=== PATIENT | female | born 1990 | race American Indian/Alaskan Native ===

== ENCOUNTER 2017-02-07 15:16 | Emergency (ER) | payer MEDICAID ==
[2017-02-07 16:14] LABS: Anion Gap 19 mmol/L; BUN/Creatinine Ratio 13; Blood Urea Nitrogen 8 mg/dL (7-17); Calcium 9.3 mg/dL (8.4-10.2); Carbon Dioxide 25 mmol/L (22-30); Glucose 113 mg/dL (65-100); Potassium 4.2 mmol/L (3.6-5.0); Sodium 138 mmol/L (137-145)
[2017-02-07 16:20] LABS: Basophils % (Auto) 0.3 % (0.0-1.8); Eosinophils % (Auto) 0.1 % (0.0-4.3); Hematocrit 42.4 % (30.3-42.9); Mean Corpuscular HGB Conc 33 % (30-34); Mean Corpuscular Hemoglobin 29 pg (28-32); Mean Corpuscular Volume 87 fl (79-97); Platelet Count 311 K/mm3 (140-440); Red Cell Distribution Width 13.9 % (13.2-15.2); White Blood Count 12.6 K/mm3 (4.5-11.0)
[2017-02-07 23:00] VITALS: BP 167/107
--- NOTE | 2017-02-08 02:06 | Emergency Department Report ---
ED Dizziness HPI - General Chief Complaint: Dizziness Stated Complaint: DIZZINESS/VOMITING Time Seen by Provider: 02/08/17 01:52 Source: patient Mode of arrival: Ambulatory Limitations: No Limitations - History of Present Illness Initial Comments: Patient is a 26-year-old female that presents to ER with dizziness and nausea vomiting 2 days. She states nausea vomiting started first. She states she feels her skin is pale and lips are dry and chapped. Patient denies chest pain or shortness of breath. She denies abdominal pain and fever and chills. LMP 01/31/17. Complaint: dizziness, lightheadedness -: Sudden Timing: sudden onset Description: lightheadedness History of Same: No History of Trauma: No Severity: severe Improves With: remaining still, rest Worsens With: movement, position, exertion, other (solid foods. ) Associated Symptoms: denies other symptoms - Related Data Previous Rx's Medication Instructions Recorded Last Taken Type Ferrous Sulfate [Feosol 325 MG tab] 325 mg PO BID #60 tablet 02/22/15 Unknown Rx HYDROcodone/APAP 5-325 [Campbell 1 each PO Q6H PRN #30 tablet 02/22/15 Unknown Rx 5-325 mg TAB] Ibuprofen [Motrin 600 MG tab] 600 mg PO Q6HR #30 tablet 02/22/15 Unknown Rx Vit-Fe Fumar-FA [ 1 each PO QDAY #30 tablet 02/22/15 Unknown Rx Vitamin] Ciprofloxacin HCl [Cipro] 500 mg PO Q12HR 10 Days #20 tablet 02/08/17 Unknown Rx Ondansetron [Zofran Odt] 4 mg PO Q6HR PRN #20 tab.rapdis 02/08/17 Unknown Rx Allergies Allergy/AdvReac Type Severity Reaction Status Date / Time No Known Allergies Allergy Unverified 02/21/15 20:27 ED Review of Systems ROS: Stated complaint: DIZZINESS/VOMITING Other details as noted in HPI Comment: All other systems reviewed and negative Respiratory: no symptoms reported Endocrine: no symptoms reported Gastrointestinal: nausea, vomiting ED Past Medical Hx - Past Medical History Previous Medical History?: Yes Hx Hypertension: No Hx Congestive Heart Failure: No Hx Diabetes: No Hx Deep Vein Thrombosis: No Hx Renal Disease: No Hx Sickle Cell Disease: No Hx Seizures: No Hx Asthma: No Hx COPD: No Hx HIV: No Additional medical history: Vaginal dleivery x 3 - Surgical History Past Surgical History?: No - Family History Family history: hypertension - Social History Smoking Status: Never Smoker Substance Use Type: Alcohol - Medications Home Medications: Home Medications Medication Instructions Recorded Confirmed Last Taken Type Ferrous Sulfate [Feosol 325 MG tab] 325 mg PO BID #60 tablet 02/22/15 Unknown Rx HYDROcodone/APAP 5-325 [Campbell 1 each PO Q6H PRN #30 tablet 02/22/15 Unknown Rx 5-325 mg TAB] Ibuprofen [Motrin 600 MG tab] 600 mg PO Q6HR #30 tablet 02/22/15 Unknown Rx Vit-Fe Fumar-FA [ 1 each PO QDAY #30 tablet 02/22/15 Unknown Rx Vitamin] Ciprofloxacin HCl [Cipro] 500 mg PO Q12HR 10 Days #20 tablet 02/08/17 Unknown Rx Ondansetron [Zofran Odt] 4 mg PO Q6HR PRN #20 tab.rapdis 02/08/17 Unknown Rx ED Physical Exam - General Limitations: No Limitations General appearance: alert, in no apparent distress - Head Head exam: Present: atraumatic, normocephalic - Eye Eye exam: Present: normal appearance - ENT ENT exam: Present: mucous membranes moist - Neck Neck exam: Present: normal inspection - Respiratory Respiratory exam: Present: normal lung sounds bilaterally. Absent: respiratory distress - Cardiovascular Cardiovascular Exam: Present: regular rate, normal rhythm. Absent: systolic murmur, diastolic murmur, rubs, gallop - GI/Abdominal GI/Abdominal exam: Present: soft, normal bowel sounds - Extremities Exam Extremities exam: Present: normal inspection - Back Exam Back exam: Present: normal inspection - Neurological Exam Neurological exam: Present: alert, oriented X3 - Psychiatric Psychiatric exam: Present: normal affect, normal mood - Skin Skin exam: Present: warm, dry, intact, normal color. Absent: rash ED Course Vital Signs 02/07/17 02/07/17 15:21 22:59 Temperature 97.8 F 98 F Pulse Rate 71 89 Respiratory 18 18 Rate Blood Pressure 154/97 167/107 O2 Sat by Pulse 100 100 Oximetry ED Medical Decision Making - Lab Data Result diagrams: 02/07/17 15:37 02/07/17 15:37 - EKG Data -: EKG Interpreted by Sd EKG shows normal: sinus rhythm Rate: normal - EKG Data When compared to previous EKG there are: previous EKG unavailable Interpretation: no acute changes, normal EKG Critical care attestation.: If time is entered above; I have spent that time in minutes in the direct care of this critically ill patient, excluding procedure time. ED Disposition Clinical Impression: Nausea & vomiting, Dizziness, Gastroenteritis, UTI (urinary tract infection) Disposition: - TO HOME OR SELFCARE Is pt being admited?: No Does the pt Need Aspirin: No Condition: Stable Instructions: Urinary Tract Infection in Women (ED), Gastroenteritis (ED), Acute Nausea and Vomiting (ED) Additional Instructions: Patient follow up with PCP in 3-5 days. Patient to return to ER if condition worsens. Patient to increase water. Patient to take ibuprofen Tylenol when necessary for pain. Brat diet Prescriptions: Ciprofloxacin HCl [Cipro] 500 mg PO Q12HR 10 Days #20 tablet Ondansetron [Zofran Odt] 4 mg PO Q6HR PRN #20 tab.rapdis PRN Reason: Nausea And Vomiting Referrals: PRIMARY CARE, [Primary Care Provider] - 3-5 Days Time of Disposition: 03:31
[2017-02-08 02:42] LABS: Urine Drugs of Abuse Note Disclamer
[2017-02-08 02:57] LABS: Bilirubin,Urine NEG (Negative); Blood,Urine MOD (Negative); Ketones,Urine 20 mg/dL (Negative); Leukocyte Esterase,Urine MOD (Negative); Mucus,Urine 3+ /HPF; Nitrite,Urine NEG (Negative); Urobilinogen,Urine < 2.0 mg/dL (<2.0)
[2017-02-08] MEDS ORDERED: ZOFRAN IM ONE (03:32)
[2017-02-08] MEDS ORDERED: ROCEPHIN IM ONE (03:32)
[2017-02-08] MEDS ORDERED: XYLOCAINE 1% MPF 5 mL INFILTRATI ONE (03:32)
== END 2017-02-08 05:25 | disposition home or self-care (01) ==
LOC: ED 15:16
DX: K52.89 Other specified noninfective gastroenteritis and colitis (principal); N39.0 Urinary tract infection, site not specified; R11.2 Nausea with vomiting, unspecified; R42 Dizziness and giddiness
CPT/HCPCS: 36415; 80048; 80307; 81001; 81025; 85025; 93005; 93010; 99283

== ENCOUNTER 2018-07-28 14:05 | Outpatient (CLI) | payer MEDICAID ==
[2018-07-28 17:15] LABS: Hemoglobin 10.6 gm/dl (10.1-14.3); Mean Corpuscular HGB Conc 34 % (30-34); Mean Corpuscular Volume 88 fl (79-97); Platelet Count 131 K/mm3 (140-440); Red Blood Count 3.53 M/mm3 (3.65-5.03)
[2018-07-28 17:39] LABS: Alanine Aminotransferase 8 units/L (7-56); Uric Acid 4.2 mg/dL (3.5-7.6)
[2018-07-28 17:56] VITALS: BP 136/89
--- NOTE | 2018-07-28 18:00 | Event Note ---
Date: 07/28/18 (labs wnl) BP 130/70 No c/o LIRIANO, blurred vision, chest pain. Will give pt 24hr urine container. She is instructed to RTO Triage Wednesday and turn it in and have repeat PIH labs drawn. Instructed to call with any concerns. Pt has appt in OB office Wednesday08-05-18
== END 2018-07-28 18:27 | disposition home or self-care (01) ==
LOC: TRG 14:05
PROVIDERS: ATTEND Obstetrics & Gynecology
DX: O47.03 False labor before 37 completed weeks of gestation, third trimester (principal); Z3A.35 35 weeks gestation of pregnancy
CPT/HCPCS: 36415; 82565; 83615; 84450; 84460; 84550; 85027; 86592; 87806

== ENCOUNTER 2018-07-30 14:19 | Outpatient (CLI) | payer MEDICAID ==
[2018-07-30 16:04] VITALS: BP 130/73
== END 2018-07-30 16:30 | disposition home or self-care (01) ==
LOC: TRG 14:19
PROVIDERS: ATTEND Obstetrics & Gynecology
DX: O47.03 False labor before 37 completed weeks of gestation, third trimester (principal); Z3A.36 36 weeks gestation of pregnancy
CPT/HCPCS: 59025; 84156

== ENCOUNTER 2018-08-04 16:07 | Inpatient (IN) | payer MEDICAID ==
[2018-08-04] MEDS ORDERED: LACTATED RINGERS 500 ML IV ONE (16:49)
[2018-08-04] MEDS ORDERED: LACTATED RINGERS 1,000 ML IV SCH (17:00)
[2018-08-04 17:40] LABS: Hematocrit 30.9 % (30.3-42.9); Hemoglobin 10.5 gm/dl (10.1-14.3); Mean Corpuscular HGB Conc 34 % (30-34); Mean Corpuscular Volume 86 fl (79-97); Platelet Count 128 K/mm3 (140-440); Red Blood Count 3.61 M/mm3 (3.65-5.03); Red Cell Distribution Width 15.7 % (13.2-15.2)
[2018-08-04 17:48] LABS: Bacteria,Urine 2+ /HPF (Negative); Bilirubin,Urine NEG (Negative); Blood,Urine NEG (Negative); Color,Urine Amber (Yellow); Mucus,Urine 3+ /HPF
[2018-08-04 18:12] LABS: Alanine Aminotransferase 6 units/L (7-56); Uric Acid 4.4 mg/dL (3.5-7.6)
[2018-08-05] MEDS: CELESTONE SOLUSPAN IM SCH (00:25)
[2018-08-05] MEDS ORDERED: ALUM-MAG HYDROX-SIMETH 200-200-20MG/5ML PO PRN (00:39)
[2018-08-05] MEDS ORDERED: MYLICON PO PRN (00:39)
[2018-08-05] MEDS ORDERED: COLACE PO PRN (00:39)
[2018-08-05] MEDS ORDERED: TYLENOL PO PRN (00:39)
[2018-08-05] MEDS ORDERED: AMBIEN PO PRN (00:50)
--- NOTE | 2018-08-05 00:54 | History and Physical Report ---
History of Present Illness Date of examination: 08/05/18 Chief complaint: Mild preeclampsia History of present illness: Patient presented to office for KARUNA. Found to have BP 140-170/90-100. She had a 24hour performed 07/30 that was 304mg/24h. She denies LIRIANO, visual changes and RUQ pain. She was sent here for evaluation where plts were noted to be decreasing. BP's stable. Will admit, proceed with steroids and delivery at 37weeks. EDC Calculations LMP: 08/27/2018 EDC Confirmation: 08/27/2018 Gestational Age: 9 5/7 weeks Past History : 5 Term Births: 2 Premature Births: 1 Living Children: 3 Para: 3 Mult. Births: 0 Prev : 0 Prev. attempt? 0 Aborta: 1 Elect. Ab: 0 Spont. Ab: 1 Ectopics: 0 # 1 Delivery date: 2011 Weeks Gestation: 32 labor: yes Delivery type: Anesthesia type: epidural Delivery location: [facility] Infant Sex: Female weight: 4-5 Comments: PTL with PTD # 2 Delivery date: 2012 Weeks Gestation: 10 Delivery type: SAB Comments: denies complications # 3 Delivery date: 2013 Weeks Gestation: term Delivery type: Anesthesia type: epidural Delivery location: [facility] Infant Sex: Male weight: 6-9 Comments: denies any intervention or complication # 4 Delivery date: 2014 Weeks Gestation: term Delivery type: Anesthesia type: none Delivery location: [facility] Sex: Male weight: 6-9 Comments: was seen by [facility] and on 17-OHP Past Medical History: Negative Past Medical History Past Surgical History: Negative Past Surgical History Past Medical History Surgery (Non-anodiser): Negative Past Surgical History Abnormal PAP: negative ZELAL[place] Exposure: negative Infertility: negative Uterine Anomaly: negative Uterine Surgery (not C/S): negative Other Gynecologic Problems: negative Infection History Hx of STD: none HIV Risk Eval: low risk Hepatitis B Risk Eval: low risk Personal hx. of genital herpes: no Partner hx. of genital herpes: no Rash, Viral, or Febrile illness since last LMP? no Varicella/Chicken Pox Status: Previous Disease TB Risk: no Genetic History Congenital Heart Defect: Mom: no Oskar Disease: Mom: no Thalassemia Mom: no Neural Tube Defect Mom: no Down's Syndrome Mom: no Dad: yes Comments: cousin Rachelle Mom: no Sickle Cell Disease/Trait Mom: no Hemophilia Mom: no Muscular Dystrophy Mom: no Cystic Fibrosis Mom: no [place] Chorea Mom: no Mental Retardation Mom: no Fragile X Mom: no Other Genetic/Chromosomal Disorder Mom: no Child w/other defect Mom: no Enviromental Exposures Xray Exposure: no Medication, drug, or alcohol use since LMP: no Chemical/Other Exposure: no Exposure to Cat Liter: no Hx of Parvovirus (Fifth Disease): no Occupational Exposure to Children: none Active Medications (reviewed today): None Current Allergies (reviewed today): No known allergies Past History - Obstetrical History Expected Date of Delivery: 08/27/18 Actual Gestation: 36 Week(s) 6 Day(s) : 4 Medications and Allergies Allergies Allergy/AdvReac Type Severity Reaction Status Date / Time No Known Allergies Allergy Verified 07/30/18 14:45 Home Medications Medication Instructions Recorded Confirmed Last Taken Type Vit-Fe Fumar-FA [ 1 each PO QDAY #30 tablet 02/22/15 07/30/18 Unknown Rx Vitamin] Active Meds: Active Medications Betamethasone Acet/Betameth SodPhos (Celestone Soluspan) 12 mg IM Q24H MATTHEW Stop: 08/06/18 00:31 Last Admin: 08/05/18 00:25 Dose: 12 mg Documented by: Lactated Ringer's (Lactated Ringers) 1,000 mls @ 125 mls/hr IV DIRECT MATTHEW Review of Systems All systems: negative - Vital Signs Vital signs: Vital Signs Pulse BP 101 H 126/75 08/04/18 16:24 08/04/18 16:24 Temp Pulse Resp BP Pulse Ox 98.3 F 90 18 132/75 08/04/18 16:27 08/05/18 00:20 08/04/18 16:27 08/05/18 00:20 - Physical Exam Breasts: Positive: deferred Lungs: Positive: Normal air movement Extremities: Positive: normal Deep Tendon Reflex Grade: Normal +2 - Obstetrical FHR: category 1 Results Result Diagrams: 08/04/18 16:25 08/04/18 16:25 Abnormal lab results 08/04/18 08/04/18 08/04/18 Range/Units 16:25 16:25 16:25 RBC 3.61 L (3.65-5.03) M/mm3 RDW 15.7 H (13.2-15.2) % Plt Count 128 L (140-440) K/mm3 Creatinine 0.5 L (0.7-1.2) mg/dL ALT 6 L (7-56) units/L Lactate Dehydrogenase 202 H (91-180) units/L Urine WBC (Auto) 8.0 H (0.0-6.0) /HPF All other labs normal. 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
--- NOTE | 2018-08-05 07:18 | Ultrasound Report ---
PROCEDURE: US OB BPP WO NON-STRESS TECHNIQUE: Transabdominal imaging was obtained for the biophysical profile. HISTORY: preeclampsia COMPARISONS: None FINDINGS: For breathing movements, a score of 2 out of 2 was obtained. For movements, a score of 2 out of 2 was obtained. For posture and tone, a score of 2 out of 2 was obtained. Qualitative amniotic fluid volume, a score of 2 out of 2 was obtained. The heart rate is 135 BPM. IMPRESSION: Normal biophysical profile score of 8 out of 8. The heart rate is 145 BPM. This document is electronically signed by Johny Gao MD., August 05 2018 07:16:40 AM ET
--- NOTE | 2018-08-05 07:19 | Ultrasound Report ---
PROCEDURE: US OB LIMITED TECHNIQUE: A limited transabdominal examination was obtained for evaluation of the presentatio n and VIRAJ. HISTORY: preeclampsia COMPARISONS: FINDINGS: The fetus is in cephalic presentation. VIRAJ is 12.0 cm. The heart is 135 BPM. IMPRESSION: Cephalic presentation. Normal VIRAJ of 12.0 cm.. This document is electronically signed by Johny Gao MD., August 05 2018 07:17:43 AM ET
--- NOTE | 2018-08-05 09:16 | Progress Note ---
Assessment and Plan Patient resting comfortably in bed. She denies any complaints or concerns at this time. She denies LIRIANO, any visual disturbances, RUQ pain. DTRs 2+. Assessment WNL. VSSAF. Reviewed POC with patient - will receive 2nd dose of steroids tonight approx midnight. MD advertising consultant will determine timing of plans for induction. Category 1 tracing at this time. No contraction on TOCO, abdomen is soft, non tender, she denies any contractions, VB, LOF. Reviewed +GBS status with pt and need for abx in labor. Will continue to monitor BP. Continue current POC. Subjective - Subjective Date of service: 08/05/18 Patient reports: movement normal, no new complaints, no loss of fluid, no vaginal bleeding, no contractions Objective - Vital Signs Vital Signs: Vital Signs - 12hr 08/04/18 08/04/18 08/04/18 21:20 21:49 22:20 Pulse Rate 93 H 89 94 H Respiratory Rate Blood Pressure 137/73 137/76 137/72 Blood Pressure [Right] 08/04/18 08/05/18 08/05/18 22:49 00:20 01:01 Pulse Rate 86 90 82 Respiratory Rate Blood Pressure 124/76 132/75 131/79 Blood Pressure [Right] 08/05/18 08/05/18 08/05/18 01:21 02:43 03:44 Pulse Rate 82 87 96 H Respiratory 16 Rate Blood Pressure 135/68 135/67 Blood Pressure 131/79 [Right] 08/05/18 08/05/18 08/05/18 04:44 05:45 07:44 Pulse Rate 98 H 88 86 Respiratory Rate Blood Pressure 124/67 117/65 100/56 Blood Pressure [Right] 08/05/18 08:46 Pulse Rate 91 H Respiratory Rate Blood Pressure 117/57 Blood Pressure [Right] - Exam Cardiovascular: Regular rate, Normal S1, Normal S2 Lungs: Clear to auscultation Abdomen: Present: normal appearance, soft, normal bowel sounds. Absent: distention, tenderness Uterus: Present: normal FHR: auscultation normal Uterine Contraction Monitor Mode: External Uterine Contraction Pattern: Absent Uterine Tone Measurement Phase: Resting (soft, non tender) Extremities: normal Deep Tendon Reflex Grade: Normal +2 - Labs Labs: Abnormal Labs 08/04/18 08/04/18 08/04/18 16:25 16:25 16:25 RBC 3.61 L RDW 15.7 H Plt Count 128 L Creatinine 0.5 L ALT 6 L Lactate Dehydrogenase 202 H Urine WBC (Auto) 8.0 H Laboratory Results - last 24 hr 08/04/18 08/04/18 08/04/18 16:25 16:25 16:25 WBC 8.8 RBC 3.61 L Hgb 10.5 Hct 30.9 MCV 86 MCH 29 MCHC 34 RDW 15.7 H Plt Count 128 L Creatinine 0.5 L Estimated GFR > 60 Uric Acid 4.4 AST 14 ALT 6 L Lactate Dehydrogenase 202 H Urine Color Nia Urine Turbidity Slightly-cloudy Urine pH 5.0 Ur Specific [place] 1.029 Urine Protein 30 mg/dl Urine Glucose (UA) Neg Urine Ketones Tr Urine Blood Neg Urine Nitrite Neg Urine Bilirubin Neg Urine Urobilinogen 2.0 Ur Leukocyte Esterase Tr Urine WBC (Auto) 8.0 H Urine RBC (Auto) 4.0 U Epithel Cells (Auto) 7.0 Urine Bacteria (Auto) 2+ Urine Mucus 3+ Blood Type Antibody Screen 08/05/18 01:53 WBC RBC Hgb Hct MCV MCH MCHC RDW Plt Count Creatinine Estimated GFR Uric Acid AST ALT Lactate Dehydrogenase Urine Color Urine Turbidity Urine pH Ur Specific [place] Urine Protein Urine Glucose (UA) Urine Ketones Urine Blood Urine Nitrite Urine Bilirubin Urine Urobilinogen Ur Leukocyte Esterase Urine WBC (Auto) Urine RBC (Auto) U Epithel Cells (Auto) Urine Bacteria (Auto) Urine Mucus Blood Type O POSITIVE Antibody Screen Negative
[2018-08-05] MEDS: PRENATAL VITAMIN PO SCH (10:20)
--- NOTE | 2018-08-05 19:16 | Event Note ---
Date: 08/05/18 Plan of care d/w pt and questions were addressed and answered. Will start pitocin for iol at 37 wks in the am. Next dose of steroids are due at about a little after midnight. Agree with MW exam an note.
[2018-08-06] MEDS: CELESTONE SOLUSPAN IM SCH (00:33)
[2018-08-06] MEDS ORDERED: PITOCin/NS 30 UNIT/500ML 30 UNITS/500 ML BAG IV SCH (07:00)
[2018-08-06] MEDS ORDERED: AMPICILLIN 2 GM in NACL 0.9% 50 ML IV ONE (07:20)
[2018-08-06] MEDS ORDERED: AMPICILLIN/NS 2 GM/100 ML 2 GM/100 ML BAG IV ONE (08:00)
[2018-08-06] MEDS: PRENATAL VITAMIN PO SCH (09:00)
[2018-08-06] MEDS ORDERED: MINERAL OIL PO PRN (09:07)
[2018-08-06] MEDS ORDERED: BRETHINE SUB-Q PRN (09:07)
[2018-08-06] MEDS ORDERED: BRETHINE IVP PRN (09:07)
[2018-08-06] MEDS ORDERED: ZOFRAN IV PRN ×2 (09:07→19:36)
[2018-08-06] MEDS ORDERED: NARCAN 0.4 MG/1 ML IV PRN (09:07)
[2018-08-06] MEDS ORDERED: SUBLIMAZE IV PRN (09:07)
--- NOTE | 2018-08-06 09:07 | Progress Note ---
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 Found to have BP 140-170/90-100. She had a 24hour performed 07/30 that was 304mg/24h. She denies LIRIANO, visual changes and RUQ pain. She was sent here for evaluation where plts were noted to be decreasing. BP's stable. Will admit, proceed with steroids and delivery at 37weeks. EDC Calculations LMP: 08/27/2018 EDC Confirmation: 08/27/2018 Gestational Age: 9 5/7 weeks Past History : 5 Term Births: 2 Premature Births: 1 Living Children: 3 Para: 3 Mult. Births: 0 Prev : 0 Prev. attempt? 0 Aborta: 1 Elect. Ab: 0 Spont. Ab: 1 Ectopics: 0 # 1 Delivery date: 2011 Weeks Gestation: 32 labor: yes Delivery type: Anesthesia type: epidural Delivery location: [facility] Sex: Female weight: 4-5 Comments: PTL with PTD # 2 Delivery date: 2012 Weeks Gestation: 10 Delivery type: SAB Comments: denies complications # 3 Delivery date: 2013 Weeks Gestation: term Delivery type: Anesthesia type: epidural Delivery location: [facility] Infant Sex: Male weight: 6-9 Comments: denies any intervention or complication # 4 Delivery date: 2014 Weeks Gestation: term Delivery type: Anesthesia type: none Delivery location: [facility] Infant Sex: Male weight: 6-9 Comments: [facility] and on 17[facility] Past Medical History: Negative Past Medical History Past Surgical History: Negative Past Surgical History Past Medical History Surgery (Non-bacteriologist fishery): Negative Past Surgical History Abnormal PAP: negative [place]EL[place] Exposure: negative Infertility: negative Uterine Anomaly: negative Uterine Surgery (not C/S): negative Other Gynecologic Problems: negative Infection History Hx of STD: none HIV Risk Eval: low risk Hepatitis B Risk Eval: low risk Personal hx. of genital herpes: no Partner hx. of genital herpes: no Rash, Viral, or Febrile illness since last LMP? no Varicella/Chicken Pox Status: Previous Disease TB Risk: no Genetic History Congenital Heart Defect: Mom: no Oskar Disease: Mom: no Thalassemia Mom: no Neural Tube Defect Mom: no Down's Syndrome Mom: no Dad: yes Comments: cousin Rachelle Mom: no Sickle Cell Disease/Trait Mom: no Hemophilia Mom: no Muscular Dystrophy Mom: no Cystic Fibrosis Mom: no [place] Chorea Mom: no Mental Retardation Mom: no Fragile X Mom: no Other Genetic/Chromosomal Disorder Mom: no Child w/other defect Mom: no Enviromental Exposures Xray Exposure: no Medication, drug, or alcohol use since LMP: no Chemical/Other Exposure: no Exposure to Cat Liter: no Hx of Parvovirus (Fifth Disease): no Occupational Exposure to Children: none Active Medications (reviewed today): None Current Allergies (reviewed today): No known allergies Patient reports: movement normal, no new complaints, no loss of fluid, no vaginal bleeding, no contractions Objective - Vital Signs Vital Signs: Vital Signs - 12hr 08/06/18 08/06/18 08/06/18 06:08 07:15 08:42 Pulse Rate 96 H 86 99 H Blood Pressure 122/69 131/82 115/61 - Exam Breasts: deferred Lungs: Normal air movement Abdomen: Present: soft. Absent: tenderness Vulva: both: normal Uterus: Present: fundal height above umbilicus. Absent: tenderness FHR: category 1 Uterine Contraction Monitor Mode: External Cervical Dilatation: 4 Cervical Effacement Percentage: 60 station: -2 soft, midline Uterine Contraction Pattern: Irregular Extremities: normal - Labs Labs: Abnormal Labs 08/04/18 08/04/18 08/04/18 16:25 16:25 16:25 RBC 3.61 L RDW 15.7 H Plt Count 128 L Creatinine 0.5 L ALT 6 L Lactate Dehydrogenase 202 H Urine WBC (Auto) 8.0 H
[2018-08-06] MEDS ORDERED: APRESOLINE IV PRN (09:13)
[2018-08-06] MEDS ORDERED: XYLOCAINE 2% INFILTRATI ONE (10:00)
[2018-08-06] MEDS ORDERED: PITOCin/NS 20 UNIT/1000ML DRIP 20 UNITS/1,000 ML BAG IV SCH ×2 (10:00→20:00)
[2018-08-06] MEDS ORDERED: MAGNESIUM SULFATE 4GM/100ML 4 GM/100 ML BAG IV ONE (10:00)
[2018-08-06] MEDS ORDERED: LACTATED RINGERS 1,000 ML IV SCH ×2 (10:00)
--- NOTE | 2018-08-06 10:00 | Anesthesia Consultation ---
Anesthesia Consult and Med Hx Date of service: 08/06/18 - Airway Anesthetic Teeth Evaluation: Good ROM Head & Neck: Adequate Mental/Hyoid Distance: Inadequate Intubation Access Assessment: Good - Pulmonary Exam CTA: Yes - Cardiac Exam Cardiac Exam: RRR - Pre-Operative Health Status ASA Pre-Surgery Classification: ASA2 Proposed Anesthetic Plan: Epidural - Pulmonary Hx Asthma: No COPD: No Hx Pneumonia: No - Cardiovascular System Hx Hypertension: Yes (HTN) - Central Nervous System Hx Seizures: No Hx Psychiatric Problems: No - Endocrine Hx Renal Disease: No Hx End Stage Renal Disease: No Hx Hypothyroidism: No Hx Hyperthyroidism: No - Hematic Hx Anemia: No Hx Sickle Cell Disease: No - Other Systems Hx Alcohol Use: No Hx Obesity: Yes (morbid obesity)
[2018-08-06] MEDS ORDERED: NARCAN 2 MG/2 ML IV PRN (10:01)
[2018-08-06] MEDS ORDERED: MARCAINE 0.25% INFILTRATI ONE ×2 (10:12→18:05)
[2018-08-06] MEDS: fentaNYL-BUPIV 2 MCG/ML-0.125% 200 MCG/100 ML BAG EPIDURAL SCH ×2 (11:12→18:07)
[2018-08-06] MEDS: MAGNESIUM SULFATE 40GM/1000ML 40 GM/1,000 ML BAG IV SCH (11:50)
[2018-08-06] MEDS: AMPICILLIN/NS 1 GM/50 ML 1 GM/50 ML BAG IV SCH ×2 (12:06→18:22)
--- NOTE | 2018-08-06 16:13 | Progress Note ---
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 Found to have BP 140-170/90-100. She had a 24hour performed 07/30 that was 304mg/24h. She denies LIRIANO, visual changes and RUQ pain. She was sent here for evaluation where plts were noted to be decreasing. BP's stable. Will admit, proceed with steroids and delivery at 37weeks. EDC Calculations LMP: 08/27/2018 EDC Confirmation: 08/27/2018 Gestational Age: 9 5/7 weeks Past History : 5 Term Births: 2 Premature Births: 1 Living Children: 3 Para: 3 Mult. Births: 0 Prev : 0 Prev. attempt? 0 Aborta: 1 Elect. Ab: 0 Spont. Ab: 1 Ectopics: 0 # 1 Delivery date: 2011 Weeks Gestation: 32 labor: yes Delivery type: Anesthesia type: epidural Delivery location: [facility] Infant Sex: Female weight: 4-5 Comments: PTL with PTD # 2 Delivery date: 2012 Weeks Gestation: 10 Delivery type: SAB Comments: denies complications # 3 Delivery date: 2013 Weeks Gestation: term Delivery type: Anesthesia type: epidural Delivery location: [facility] Sex: Male weight: 6-9 Comments: denies any intervention or complication # 4 Delivery date: 2014 Weeks Gestation: term Delivery type: Anesthesia type: none Delivery location: [facility] Sex: Male weight: 6-9 Comments: was seen by [facility] and on 17-OHP Past Medical History: Negative Past Medical History Past Surgical History: Negative Past Surgical History Past Medical History Surgery (Non-groundman/lineman): Negative Past Surgical History Abnormal PAP: negative [place] Exposure: negative Infertility: negative Uterine Anomaly: negative Uterine Surgery (not C/S): negative Other Gynecologic Problems: negative Infection History Hx of STD: none HIV Risk Eval: low risk Hepatitis B Risk Eval: low risk Personal hx. of genital herpes: no Partner hx. of genital herpes: no Rash, Viral, or Febrile illness since last LMP? no Varicella/Chicken Pox Status: Previous Disease TB Risk: no Genetic History Congenital Heart Defect: Mom: no Oskar Disease: Mom: no Thalassemia Mom: no Neural Tube Defect Mom: no Down's Syndrome Mom: no Dad: yes Comments: cousin [place] Mom: no Sickle Cell Disease/Trait Mom: no Hemophilia Mom: no Muscular Dystrophy Mom: no Cystic Fibrosis Mom: no Yoana Chorea Mom: no Mental Retardation Mom: no Fragile X Mom: no Other Genetic/Chromosomal Disorder Mom: no Child w/other defect Mom: no Enviromental Exposures Xray Exposure: no Medication, drug, or alcohol use since LMP: no Chemical/Other Exposure: no Exposure to Cat Liter: no Hx of Parvovirus (Fifth Disease): no Occupational Exposure to Children: none Active Medications (reviewed today): None Current Allergies (reviewed today): No known allergies Patient reports: movement normal, no new complaints, no loss of fluid, no vaginal bleeding, no contractions Objective - Vital Signs Vital Signs: Vital Signs - 12hr 08/06/18 08/06/18 08/06/18 06:08 07:15 08:00 Temperature 98.2 F Pulse Rate 96 H 86 Blood Pressure 122/69 131/82 O2 Sat by Pulse Oximetry 08/06/18 08/06/18 08/06/18 08:42 09:44 10:07 Temperature Pulse Rate 99 H 96 H 106 H Blood Pressure 115/61 120/62 O2 Sat by Pulse 98 Oximetry 08/06/18 08/06/18 08/06/18 10:12 10:16 10:17 Temperature Pulse Rate 99 H 120 H 97 H Blood Pressure O2 Sat by Pulse 100 94 100 Oximetry 08/06/18 08/06/18 08/06/18 10:22 10:27 10:29 Temperature Pulse Rate 100 H 95 H Blood Pressure 135/87 O2 Sat by Pulse 73 L 99 Oximetry 08/06/18 08/06/18 08/06/18 10:32 10:33 10:35 Temperature Pulse Rate 103 H 112 H Blood Pressure 144/81 O2 Sat by Pulse 99 50 L Oximetry 08/06/18 08/06/18 08/06/18 10:37 10:38 10:41 Temperature Pulse Rate 98 H 102 H 96 H Blood Pressure 145/76 146/77 O2 Sat by Pulse 99 Oximetry 08/06/18 08/06/18 08/06/18 10:42 10:45 10:47 Temperature Pulse Rate 105 H 105 H 95 H Blood Pressure 149/67 149/67 O2 Sat by Pulse 98 99 Oximetry 08/06/18 08/06/18 08/06/18 10:50 10:52 10:57 Temperature Pulse Rate 110 H 101 H 105 H Blood Pressure 149/72 O2 Sat by Pulse 98 98 Oximetry 08/06/18 08/06/18 08/06/18 11:02 11:06 11:07 Temperature Pulse Rate 110 H 105 H 103 H Blood Pressure 140/64 O2 Sat by Pulse 98 99 Oximetry 08/06/18 08/06/18 08/06/18 11:12 11:17 11:21 Temperature Pulse Rate 92 H 113 H 96 H Blood Pressure 139/68 O2 Sat by Pulse 99 97 Oximetry 08/06/18 08/06/18 08/06/18 11:22 11:27 11:32 Temperature Pulse Rate 100 H 100 H 103 H Blood Pressure O2 Sat by Pulse 98 100 100 Oximetry 08/06/18 08/06/18 08/06/18 11:37 11:42 11:47 Temperature Pulse Rate 104 H 102 H 93 H Blood Pressure 135/69 O2 Sat by Pulse 99 99 99 Oximetry 08/06/18 08/06/18 08/06/18 11:51 11:52 11:57 Temperature Pulse Rate 101 H 90 92 H Blood Pressure 139/73 O2 Sat by Pulse 100 99 Oximetry 08/06/18 08/06/18 08/06/18 12:02 12:07 12:12 Temperature Pulse Rate 96 H 95 H 104 H Blood Pressure O2 Sat by Pulse 100 98 100 Oximetry 08/06/18 08/06/18 08/06/18 12:15 12:17 12:21 Temperature Pulse Rate 115 H 93 H 105 H Blood Pressure 134/63 O2 Sat by Pulse 38 L 96 Oximetry 08/06/18 08/06/18 08/06/18 12:22 12:27 12:32 Temperature Pulse Rate 106 H 99 H 98 H Blood Pressure O2 Sat by Pulse 98 97 98 Oximetry 08/06/18 08/06/18 08/06/18 12:37 12:42 12:47 Temperature Pulse Rate 103 H 96 H 95 H Blood Pressure 126/69 O2 Sat by Pulse 99 98 99 Oximetry 08/06/18 08/06/18 08/06/18 12:52 12:58 13:03 Temperature Pulse Rate 100 H 97 H 97 H Blood Pressure 130/62 O2 Sat by Pulse 98 100 99 Oximetry 08/06/18 08/06/18 08/06/18 13:07 13:08 13:15 Temperature Pulse Rate 97 H 96 H 109 H Blood Pressure 132/66 O2 Sat by Pulse 99 96 Oximetry 08/06/18 08/06/18 08/06/18 13:20 13:21 13:25 Temperature Pulse Rate 91 H 96 H 94 H Blood Pressure 117/60 O2 Sat by Pulse 99 99 Oximetry 08/06/18 08/06/18 08/06/18 13:30 13:35 13:37 Temperature Pulse Rate 102 H 103 H 93 H Blood Pressure 125/62 O2 Sat by Pulse 97 99 Oximetry 08/06/18 08/06/18 08/06/18 13:40 13:45 13:48 Temperature Pulse Rate 103 H 98 H 76 Blood Pressure O2 Sat by Pulse 99 99 63 L Oximetry 08/06/18 08/06/18 08/06/18 13:50 13:51 13:55 Temperature Pulse Rate 98 H 93 H 95 H Blood Pressure 129/62 O2 Sat by Pulse 99 99 Oximetry 08/06/18 08/06/18 08/06/18 14:00 14:05 14:06 Temperature Pulse Rate 93 H 94 H 98 H Blood Pressure 129/65 O2 Sat by Pulse 98 97 Oximetry 08/06/18 08/06/18 08/06/18 14:10 14:15 14:20 Temperature Pulse Rate 93 H 92 H 92 H Blood Pressure O2 Sat by Pulse 100 98 99 Oximetry 08/06/18 08/06/18 08/06/18 14:21 14:25 14:30 Temperature Pulse Rate 92 H 90 95 H Blood Pressure 127/65 O2 Sat by Pulse 97 99 Oximetry 08/06/18 08/06/18 08/06/18 14:35 14:38 14:40 Temperature Pulse Rate 88 88 89 Blood Pressure 101/55 O2 Sat by Pulse 97 97 Oximetry 08/06/18 08/06/18 08/06/18 14:45 14:50 14:51 Temperature Pulse Rate 91 H 88 86 Blood Pressure 109/56 O2 Sat by Pulse 97 97 Oximetry 08/06/18 08/06/18 08/06/18 14:55 15:00 15:05 Temperature Pulse Rate 86 83 87 Blood Pressure O2 Sat by Pulse 97 98 97 Oximetry 08/06/18 08/06/18 08/06/18 15:06 15:10 15:15 Temperature Pulse Rate 82 84 89 Blood Pressure 105/58 O2 Sat by Pulse 97 96 Oximetry 08/06/18 08/06/18 08/06/18 15:20 15:21 15:25 Temperature Pulse Rate 90 82 92 H Blood Pressure 107/67 O2 Sat by Pulse 97 97 Oximetry 08/06/18 08/06/18 08/06/18 15:30 15:35 15:36 Temperature Pulse Rate 93 H 104 H 90 Blood Pressure 111/67 O2 Sat by Pulse 98 96 Oximetry 08/06/18 08/06/18 08/06/18 15:40 15:45 15:50 Temperature Pulse Rate 94 H 93 H 98 H Blood Pressure O2 Sat by Pulse 98 97 98 Oximetry 08/06/18 08/06/18 15:51 15:55 Temperature Pulse Rate 100 H 95 H Blood Pressure 125/68 O2 Sat by Pulse 98 Oximetry - Exam Breasts: deferred Abdomen: Present: soft. Absent: tenderness Vulva: both: normal Uterus: Present: fundal height above umbilicus. Absent: tenderness FHR: category 1, category 2 Uterine Contraction Monitor Mode: Internal Cervical Dilatation: 4.5 Cervical Effacement Percentage: 70 station: -2 AROM, clear, IU{C and ISE placed w/o difficulty Uterine Contraction Pattern: Regular - Labs Labs: Abnormal Labs 08/04/18 08/04/18 08/04/18 16:25 16:25 16:25 RBC 3.61 L RDW 15.7 H Plt Count 128 L Creatinine 0.5 L ALT 6 L Lactate Dehydrogenase 202 H Urine WBC (Auto) 8.0 H
[2018-08-06] MEDS ORDERED: LOMOTIL PO PRN (19:19)
[2018-08-06] MEDS ORDERED: DULCOLAX PR PRN (19:36)
[2018-08-06] MEDS ORDERED: MILK OF MAGNESIA PO PRN (19:36)
[2018-08-06] MEDS ORDERED: PHENERGAN PO PRN (19:36)
[2018-08-06] MEDS ORDERED: LANSINOH TP PRN (19:36)
[2018-08-06] MEDS ORDERED: TUCKS PAD TP PRN (19:36)
[2018-08-06] MEDS ORDERED: PHENERGAN PR PRN (19:36)
[2018-08-06] MEDS ORDERED: SODIUM CHLORIDE FLUSH SYRINGE 10 ML IV NR (20:00)
[2018-08-06] MEDS ORDERED: CYTOTEC PR ONE (20:19)
[2018-08-06] MEDS ORDERED: HEMABATE IM ONE (20:19)
--- NOTE | 2018-08-06 21:32 | Procedure Note ---
OB Delivery Note - Delivery Date of Delivery: 08/06/18 Surgeon: DANE LEE Estimated blood loss: 500cc - Vaginal Delivery presentation: vertex Delivery position: OA Intrapartum events: preeclampsia, hemorrhage (Resolved with manual massage of uterine, expression of clots from lower uterine segment, Pitocin 10u IM, hemabate 250mcg IM, Cytotec 1000mcg PA and Pitocin IV bolus 30u. FF at umbilicus) Delivery induction: oxytocin Delivery augmentation: rupture of membranes, pitocin Delivery monitor: external FHT, external uterine, internal FHT, internal uterine Route of delivery: Delivery placenta: spontaneous (intact) Delivery cord: nuchal cord (release over body with delivery) Episiotomy: none Delivery laceration: none Anesthesia: epidural - A at 1 minute: 8 at 5 minutes: 9 Infant Gender: Female (5#40z)
[2018-08-07] MEDS: IBUPROFEN PO SCH ×4 (00:55→23:48)
[2018-08-07] MEDS: TYLENOL PO PRN ×2 (02:45→21:33)
--- NOTE | 2018-08-07 08:03 | Post Anesthesia Evaluation ---
- Post Anesthesia Evaluation Patient Participated: Yes Airway Patent: Yes Stable Respiratory Function: Yes Nausea/Vomiting: No Temp > 96.8F: Yes Pain Manageable: Yes Adequeate Hydration: Yes Anesthesia Complications: No Block Receding Appropriately: Yes Patient on Ventilator: No
[2018-08-07] MEDS: MAGNESIUM SULFATE 40GM/1000ML 40 GM/1,000 ML BAG IV SCH (08:15)
[2018-08-07 10:27] LABS: Hematocrit 25.2 % (30.3-42.9); Hemoglobin 8.5 gm/dl (10.1-14.3)
[2018-08-07] MEDS ORDERED: TYLENOL PO ONE (11:00)
--- NOTE | 2018-08-07 12:23 | Progress Note ---
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 Current Visit: Yes Status: Acute (4) Single live Current Visit: Yes Status: Acute Subjective - Subjective Date of service: 08/07/18 Principal diagnosis: PPD#1; , PreE Patient reports: appetite normal, voiding normally, pain well controlled Objective - Vital Signs Latest vital signs: Vital Signs Temp Pulse Resp BP Pulse Ox 08/07/18 12:07 94 H 117/67 08/07/18 11:07 93 H 130/60 08/07/18 10:07 94 H 130/65 08/07/18 09:07 89 125/81 08/07/18 08:07 78 129/80 08/07/18 08:00 97.6 F 14 08/07/18 07:07 80 122/71 08/07/18 06:07 79 120/65 08/07/18 05:07 78 123/77 08/07/18 01:37 88 125/83 08/06/18 23:51 92 H 143/67 08/06/18 23:36 95 H 142/72 08/06/18 23:21 88 142/78 08/06/18 23:06 90 138/71 08/06/18 22:51 86 136/64 08/06/18 22:36 89 131/87 08/06/18 22:21 85 140/85 08/06/18 21:21 103 H 138/66 08/06/18 21:07 102 H 149/78 08/06/18 20:36 107 H 124/69 08/06/18 20:21 104 H 121/65 08/06/18 20:06 110 H 140/81 08/06/18 19:53 106 H 100 08/06/18 19:51 96 H 138/84 08/06/18 19:47 98 H 99 08/06/18 19:42 93 H 99 08/06/18 19:37 98 H 99 08/06/18 19:36 97 H 153/75 08/06/18 19:33 96 H 109/70 08/06/18 19:32 112 H 94 08/06/18 19:29 95 H 116/61 08/06/18 19:27 100 H 111/57 100 08/06/18 19:21 92 H 107/53 08/06/18 19:06 111 H 131/83 08/06/18 18:52 104 H 128/65 92 08/06/18 18:47 107 H 99 08/06/18 18:42 109 H 121/63 100 08/06/18 18:37 115 H 124/65 100 08/06/18 18:32 109 H 100 08/06/18 18:27 106 H 100 08/06/18 18:22 119 H 100 08/06/18 18:21 109 H 121/58 08/06/18 18:17 107 H 99 08/06/18 18:12 93 H 100 08/06/18 18:08 96 H 127/75 08/06/18 18:07 98 H 100 08/06/18 18:02 98 H 99 08/06/18 17:57 91 H 100 08/06/18 17:52 92 H 117/55 100 08/06/18 17:47 99 H 100 08/06/18 17:42 92 H 99 08/06/18 17:37 93 H 99 08/06/18 17:36 91 H 125/60 08/06/18 17:32 92 H 99 08/06/18 17:27 104 H 99 08/06/18 17:22 99 H 99 08/06/18 17:21 92 H 134/64 08/06/18 17:17 93 H 100 08/06/18 17:12 99 H 98 08/06/18 17:07 100 H 133/64 99 08/06/18 17:02 96 H 99 08/06/18 16:57 91 H 99 08/06/18 16:52 94 H 121/58 100 08/06/18 16:47 99 H 100 08/06/18 16:42 99 H 98 08/06/18 16:37 93 H 123/60 99 08/06/18 16:32 91 H 99 08/06/18 16:27 92 H 99 08/06/18 16:21 90 123/58 08/06/18 16:20 94 H 99 08/06/18 16:15 89 98 08/06/18 16:10 94 H 98 08/06/18 16:07 90 126/59 08/06/18 16:05 92 H 99 08/06/18 16:01 94 H 90 08/06/18 16:00 92 H 99 08/06/18 15:55 95 H 98 08/06/18 15:51 100 H 125/68 08/06/18 15:50 98 H 98 08/06/18 15:45 93 H 97 08/06/18 15:40 94 H 98 08/06/18 15:36 90 111/67 08/06/18 15:35 104 H 96 08/06/18 15:30 93 H 98 08/06/18 15:25 92 H 97 08/06/18 15:21 82 107/67 08/06/18 15:20 90 97 08/06/18 15:15 89 96 08/06/18 15:10 84 97 08/06/18 15:06 82 105/58 08/06/18 15:05 87 97 08/06/18 15:00 83 98 08/06/18 14:55 86 97 08/06/18 14:51 86 109/56 08/06/18 14:50 88 97 08/06/18 14:45 91 H 97 08/06/18 14:40 89 97 08/06/18 14:38 88 101/55 08/06/18 14:35 88 97 08/06/18 14:30 95 H 99 08/06/18 14:25 90 97 08/06/18 14:21 92 H 127/65 08/06/18 14:20 92 H 99 08/06/18 14:15 92 H 98 08/06/18 14:10 93 H 100 08/06/18 14:06 98 H 129/65 08/06/18 14:05 94 H 97 08/06/18 14:00 93 H 98 08/06/18 13:55 95 H 99 08/06/18 13:51 93 H 129/62 08/06/18 13:50 98 H 99 08/06/18 13:48 76 63 L 08/06/18 13:45 98 H 99 08/06/18 13:40 103 H 99 08/06/18 13:37 93 H 125/62 08/06/18 13:35 103 H 99 08/06/18 13:30 102 H 97 08/06/18 13:25 94 H 99 08/06/18 13:21 96 H 117/60 08/06/18 13:20 91 H 99 08/06/18 13:15 109 H 96 08/06/18 13:08 96 H 99 08/06/18 13:07 97 H 132/66 08/06/18 13:03 97 H 99 08/06/18 12:58 97 H 100 08/06/18 12:52 100 H 130/62 98 08/06/18 12:47 95 H 99 08/06/18 12:42 96 H 98 08/06/18 12:37 103 H 126/69 99 08/06/18 12:32 98 H 98 08/06/18 12:27 99 H 97 08/06/18 12:22 106 H 98 Intake and Output 08/06/18 08/07/18 08/07/18 22:59 06:59 14:59 Intake Total 510.417 Output Total 1999 700 750 Balance -1999 -700 -239.583 Intake: IV 510.417 MAGNESIUM SULFATE 40GM/ 510.417 1000ML 40 gm In 1,000 ml @ 2 GM/HR 50 mls/hr IV DIRECT MATTHEW Rx#:[id number] Output: Urine 1999 700 750 Indwelling Catheter 1999 700 750 Other: Total, Output Amount 1999 700 750 Estimated Blood Loss 500 - Exam Breasts: Present: normal Lungs: Present: Clear to auscultation, Normal air movement Abdomen: Present: soft - Labs Labs: Abnormal lab results 08/06/18 08/06/18 08/07/18 Range/Units 16:25 21:18 02:13 Hgb (10.1-14.3) gm/dl Hct (30.3-42.9) % Magnesium 3.80 H 4.20 H 4.20 H (1.7-2.3) mg/dL 08/07/18 08/07/18 Range/Units 10:00 10:00 Hgb 8.5 L (10.1-14.3) gm/dl Hct 25.2 L (30.3-42.9) % Magnesium 4.50 H (1.7-2.3) mg/dL
[2018-08-07] MEDS: COLACE PO SCH (17:09)
[2018-08-07] MEDS: FEOSOL PO SCH (17:09)
[2018-08-07] MEDS ORDERED: BOOSTRIX IM ONE (19:36)
[2018-08-08] MEDS: IBUPROFEN PO SCH ×2 (05:55→12:05)
--- NOTE | 2018-08-08 06:30 | Discharge Summary ---
Providers - Providers Date of Admission: 08/05/18 02:20 Date of discharge: 08/08/18 (pt agrees with d/c) Attending physician: DANE LEE 08/06/18 19:38 Consult to Physician Practice Market Manager [CONS] Routine Reason For Exam: assistance with , SNS Primary care physician: DANE LEE Hospitalization Reason for admission: active labor Delivery: Episiotomy: none Laceration: none Incision: normal Other procedures: none complications: none Discharge diagnosis: IUP at term delivered baby: female Hospital course: uncomplicated vaginal delivery Pt resting No c/o voiced Reviewed breast feeding tips. All questions addressed. VSS FF below umb Lochia small Perineum intact. H&H 10/23 drop r/t blood loss from delivery . Asymptomatic. Doing well s/p vag del P: d/c today with instructions RTO 4 weeks PP care Condition at discharge: Good Disposition: DC-01 TO HOME OR SELFCARE - Discharge Diagnoses (1) Status post normal vaginal delivery Status: Acute Comment: RTO 4 weeks PP care Plan - Provider Discharge Summary Activity: routine, no sex for 6 weeks, no heavy lifting 4 weeks, no strenuous exercise Diet: routine Instructions: routine Additional instructions: [] Smoking cessation referral if applicable(refer to patient education folder for contact #) [] Refer to [facility]'s [facility] Booklet Call your doctor immediately for: * Fever > 100.5 * Heavy vaginal bleeding ( >1 pad per hour) * Severe persistent headache * Shortness of breath * Reddened, hot, painful area to leg or breast * Drainage or odor from incision. * Keep incision clean and dry at all times and follow doctor's instructions regarding bathing/showering - Follow up plan Follow up: ADNE LEE MD [Primary Care Provider] - 09/05/18 (Congratulations! Please call [phone] to schedule your visit in 4 weeks. Motrin/ibuprofen for cramping/pain. Call with concerns. ANTONIO, [address], [address], [place] [address])
[2018-08-08] MEDS: TYLENOL PO PRN (10:42)
[2018-08-08] MEDS: COLACE PO SCH (10:43)
[2018-08-08] MEDS: FEOSOL PO SCH (10:43)
[2018-08-08 17:03] VITALS: BP 123/65
== END 2018-08-08 19:46 | disposition home or self-care (01) | DRG 774 ==
LOC: TRG 16:07 → LD 08-05 02:20 → OB 08-07 13:27
PROVIDERS: ADMIT Obstetrics & Gynecology; ATTEND Obstetrics & Gynecology
PROC: 10E0XZZ Delivery of Products of Conception, External Approach (ICD-10-PCS; principal; 2018-08-06)
PROC: 3E033VJ Introduction of Other Hormone into Peripheral Vein, Percutaneous Approach (ICD-10-PCS; 2018-08-06)
PROC: 3E0R3BZ Introduction of Anesthetic Agent into Spinal Canal, Percutaneous Approach (ICD-10-PCS; 2018-08-06)
PROC: 00HU33Z Insertion of Infusion Device into Spinal Canal, Percutaneous Approach (ICD-10-PCS; 2018-08-06)
DX: O14.94 Unspecified pre-eclampsia, complicating childbirth (principal); O99.824 Streptococcus B carrier state complicating childbirth; O99.214 Obesity complicating childbirth; E66.01 Morbid (severe) obesity due to excess calories; O69.81X0 Labor and delivery complicated by cord around neck, without compression, not applicable or unspecified; O72.1 Other immediate postpartum hemorrhage; Z3A.36 36 weeks gestation of pregnancy; Z37.0 Single live birth
CPT/HCPCS: 36415; 59025; 76815; 76819; 81001; 82565; 83615; 83735; 84450; 84460; 84550; 85014; 85018; 85027; 86592; 86850; 86900; 86901; G0378; J0290; J0702; J2590; J3010; J3475; J7120